=== PATIENT | male | born 1945 | race Caucasian/White ===

== ENCOUNTER → 2017-01-07 | Outpatient (CLI) | payer OTHER ==
[2016-04-30 13:41] VITALS: BP 117/71; PULSE 72
[~2017-01-07] MED LIST: CHOL20007 PO; DICL1GEL28 TOP; IBUP1CAP9 PO; LISI-786 PO; METF500T PO; SILD100T PO; SIMV40TA2 PO
[2017-01-07 12:58] VITALS: BP 129/72; PULSE 92; TEMP 36.9; O2SAT 97
--- NOTE | 2017-01-07 13:45 | Radiation Oncology Follow-Up ---
Radiation Oncology Follow-Up Date of Visit January 07, 2017. Reason For Visit 6 month follow-up Radiation Completion Date Brachytherapy as monotherapy for prostate cancer 10/01/15;[place] Diagnosis (1) Prostate cancer Status: Resolved Onset Date: 11/20/2014 Location: both lobes of the prostate Histology Subtype: adenocarcinoma Stage: ll Permanent Comment: Rising PSA, pretreatment PSA 8.69 Status post ultrasound guided biopsy 11/20/2014 Biopsy stage T2c N0M0 Rolando grade 3+ rate and 3+4 Prostate volume 48.6 Prostate density 0.178 Status post prostate seed implant as monotherapy 10/01/2015 dose 115 Gy 70 seeds were placed Last Edited By: Cristiana Ruvalcaba on Oct 14, 2015 09:37 History of Present Illness Mr. Degroot is a 71-year-old male without a family history of prostate cancer. He presented with a rising prostate-specific antigen to 4.32 in 2007. Because of this rise he underwent ultrasound-guided biopsies on 12/22/2007. Estimated prostate volume was 41 g. A total of 12 biopsies were taken. All 12 biopsies were benign with no evidence of malignancy. Case: [id number]. More recently the patient again had an elevation in his prostate-specific antigen to 8.69 in early 2014. He again was seen by Dr. Tobin. His prostate was estimated at 50 g with some vague firmness on the right compared to the left but no nodularity. Because of the rise in prostate-specific antigen a recommendation was made for repeat ultrasound-guided biopsies. The patient agreed to this procedure was performed on 11/20/2014. A total of 14 biopsies were taken. Estimated prostate volume was 48.6 g. The biopsies from the right and left base and right and left mid gland were benign. Biopsies from the right and left anterior gland were benign. The biopsy from the left apex was positive for an adenocarcinoma of [place] grade of 3+4. The Rolando pattern 4 comprises 10% of the tumor and the tumor involved 35% of the core tissue sample. No lymphovascular or perineural invasion was identified. The biopsy from the right apex was positive for an adenocarcinoma Rolando grade 3+3 involving 50% of the core sample with no lymphovascular or perineural invasion identified. Therefore a total of 2 out of 14 biopsies were positive. Case: [id number]. The patient return to discuss these findings with Dr. Tobin on 11/27/2014. He discussed briefly the treatment options. He arranged for the patient to be seen by Dr. Peralta to discuss the role of radical robotic prostatectomy and he arranged for us to see the patient in referral to discuss the role of radiation. He made the decision to undergo prostate seed implant. He return to our office 12/12/2014 and had an arch study. This showed that the arch was tight and was not currently candidate for implant. He was given a 30 mg Lupron injection on 01/15/2015. He returned today for repeat arch study. He stated the Lupron injection did not improve his urinary status. His AUA score at his last visit was 8. Today his AUA score is 9. He completed expanded prostate cancer index composite for clinical practice and gave a score of 1 of 12 in urinary incontinence symptoms. He gave a score of 3 of 12 in urinary irritation symptoms. He gave a score of 3 of 12 in bowel symptoms. He gave a score of 9 of 12 in sexual symptoms. He gave a score of 3 of 12 and vitality hormonal symptoms. His total was 19 of 60. He describes a slight amount of dysuria with urination. This is mostly at the very end of the penis. It is infrequent. Pain is minimal. He also had more frequent loose bowel movements right after the Lupron injection. This is now resolved. He was also eating a lot of fresh fruit at that time. He is a diabetic he currently is not monitoring his blood sugars at home. His glucometer is broken. He did have a hemoglobin A1c obtained by On 02/12/2015 which was 7.5. With the Lupron therapy he did have a steady decrease in the size of the prostate and we were able to go forward with the implant. Initially the prostate was 48 mL. On 11/20/2014. He had a CT 12/12/2014 and the size was [address] on 03/26/2015 the size was 29 mL. The final arch study 05/27/2015 showed a volume of 25 mL. He was able to be treated with prostate seed implant as monotherapy. This was performed on 10/01/2015. He received 115 Gy. Interim History He is been doing well over the past 6 months from urinary standpoint. He completed AUA score sheet and gave a score of 2. He previously had been on Uroxatral. He is not required the use of this medication in over 6 months. He completed expanded prostate cancer index composite for clinical practice and gave a score of 0 of 12 and urinary incontinence symptoms. He gave a score of 0 of 12 urinary irritation symptoms. He gave a score of 2 of 12 bowel symptoms. He gave a score 8 of 12 and sexual symptoms. He gave a score of one of 12 and hormonal vitality symptoms. His total was 11 of 60. He has seen Dr. Virgen in follow-up. He had a PSA 10/11/2016 at [facility]. This was improved 0.77. The prior evaluation was December 2015 and was 1.730. He has had issues with erectile dysfunction. At his last visit Dr. Virgen increase the Viagra to 100 mg. With the change of dose this did help but he continues to have difficulty with erectile dysfunction. We discussed the use of a pump. He did review this information on the Internet. This did not require a prescription. Allergies Coded Allergies: Rosuvastatin (Verified Allergy, Intermediate, Dizzy , 04/30/16) Home Medications Scheduled Diclofenac Sod (Voltaren 1% Top Gel), 1 APPLN TOP PRN Lisinopril & Hydrochlorothiazi (Zestoretic), 1 TAB PO QAM Metformin Hcl (Glucophage), 1,000 MG PO QAM Simvastatin (Zocor), 40 MG PO QPM Scheduled PRN Ibuprofen (Ibuprofen), 200 MG PO Q6H PRN for Pain Sildenafil Citrate (Viagra), 1 TAB PO DAILY PRN for UNDECIDED Review of Systems Gastrointestinal: Symptoms: WNL GI Comments: No fiber supplements;Rectal spotting - relates to hemorrhoids Oral: Symptoms: No Problems Respiratory: Symptoms: WNL Urinary: Symptoms: WNL Comments: Nocturia x 1-2, See AUA & EPIC Skin: Symptoms: No Problems Physical Exam Vital Signs Date Time Temp Pulse Resp B/P Pulse Ox O2 Delivery O2 Flow Rate FiO2 01/07/17 12:58 36.9 92 24 129/72 97 Pain: Side: Bilateral Patient Pain Scale: 0 - 10 Initial Pain Intensity: 0.0 General Appearance: no apparent distress Eyes: normal inspection, EOMI ENT: normal ENT inspection, hearing grossly normal Respiratory/Chest: lungs clear, no respiratory distress, no accessory muscle use Cardiovascular: regular rate, rhythm, no gallop, + systolic murmur (1/6 systolic murmur) Abdomen: non tender, soft Anal / Rectum: Normal sphincter tone. Prostate is consistent with a seed implant. No rectal masses no rectal bleeding. Extremities: no pedal edema Neurologic/Psychiatric: no motor/sensory deficits, alert, normal mood/affect Skin: warm/dry Additional Studies PSA as reviewed above. Assessment & Plan Plan: He'll be due for his next PSA in March. An order was given. He'll be notified as the results. Continue follow-up with Dr. Virgen. He'll be seeing him in September. He has any continued to consider the pump for erectile dysfunction. We asked him to return to our office in 1 year. Hematology is any questions or concerns in the interim. Total Time In Follow-Up I spent 20 minutes speaking to the patient and performing examination. I spent 15 minutes reviewing information and completing this note. Copy To Isaiah Luna D.O.; Sergo Virgen MD
== END | disposition home or self-care (01) ==
LOC: C.ONC 12:39
PROVIDERS: ATTEND Physician Assistant Medical
DX: Z08 Encounter for follow-up examination after completed treatment for malignant neoplasm (principal); Z92.3 Personal history of irradiation; Z85.46 Personal history of malignant neoplasm of prostate

== ENCOUNTER 2024-04-06 08:41 | Observation (INO) ==
--- NOTE | 2024-01-04 13:55 | PAT Medication Instructions ---
Medication Instructions Date of Service January 04, 2024 Home Medications Medication Instructions Recorded pantoprazole 40 mg tablet,delayed 40 mg PO PM #90 tabs 09/21/23 release lisinopril 40 mg tablet 40 mg PO QAM diltiazem HCl 60 mg capsule,extended release 12 hr 60 mg PO QAM aspirin 81 mg tablet,delayed release (Adult Aspirin Regimen) 81 mg PO PM mecobalamin (vitamin B12) 1,000 mcg chewable tablet 1,000 mcg PO QAM rosuvastatin 10 mg tablet 10 mg PO QPM pantoprazole 40 mg tablet,delayed release 40 mg PO PM dulaglutide 1.5 mg/0.5 mL subcutaneous pen injector (Trulicity) 4.5 mg subcut WK empagliflozin 10 mg tablet (Jardiance) 10 mg PO QAM aluminum hydrox-magnesium carb 160 mg-105 mg chewable tablet 2 tab PO BID PRN docusate sodium 100 mg capsule (Colace) 100 mg PO DAILY STOP 7 days before surgery dulaglutide 1.5 mg/0.5 mL subcutaneous pen injector (Trulicity) 4.5 mg subcut WK STOP 3 days before surgery empagliflozin 10 mg tablet (Jardiance) 10 mg PO QAM ASK your prescriber and surgeon aspirin 81 mg tablet,delayed release (Adult Aspirin Regimen) 81 mg PO PM DO NOT take the morning of surgery lisinopril 40 mg tablet 40 mg PO QAM mecobalamin (vitamin B12) 1,000 mcg chewable tablet 1,000 mcg PO QAM aluminum hydrox-magnesium carb 160 mg-105 mg chewable tablet 2 tab PO BID PRN docusate sodium 100 mg capsule (Colace) 100 mg PO DAILY Take morning of surgery With a small sip of water, OTHERWISE NOTHING TO EAT OR DRINK AFTER MIDNIGHT: diltiazem HCl 60 mg capsule,extended release 12 hr 60 mg PO QAM Take evening before surgery rosuvastatin 10 mg tablet 10 mg PO QPM pantoprazole 40 mg tablet,delayed release 40 mg PO PM aluminum hydrox-magnesium carb 160 mg-105 mg chewable tablet 2 tab PO BID PRN Other Notes If you have any questions please call us at [phone] or [phone] or [phone] or [phone]
--- NOTE | 2024-01-13 09:30 | Anesthesiology Consultation ---
Date of Service January 13, 2024 Assessment & Plan (1) Encounter for pre-operative examination: - check BSG am DOS. - [place] [facility] pre-operative evaluation 01/13/24 [place]: "...Mild Non-obstructive CAD, Aortic Sclerosis, [id number] Mitral Regurgitation, Hypertension, Hypercholesterolemia, Type 2 Diabetes Mellitus, Abnormal EKG (showing NSR with sinus arrhythmia, anterior T wave inversions, and non-specific T wave abnormality in the inferior leads), Prostate Cancer, Stage 3 CKD, and Secondary Hyperparathyroidism who presents today for Preoperative Cardiologic Evaluation. Patient is scheduled undergo a reverse right TSA with Dr. Dennis Damon on 02/10/2024. Patient offers no complaints today. He is able to perform his usual activities of daily living, walk 30 minutes, rides stationary bike for 30 minutes, climb > 2 flights of stairs, do yard work, graham, carry groceries, etc without limiting cardiopulmonary symptoms or difficulties. He recently cut up 5 tandem trucks with a torch in order to haul them off to the dump, this required him to load them into the back of another vehicle. He did not have any symptoms with this either. Patient has not experienced any angina pectoris or anginal equivalent symptoms, overt signs or symptoms of heart failure, nor has he had an y symptoms suggestive dysrhythmia. He has not had any neurologic symptoms suggestive of stroke or mini stroke. He does not experience claudication with his day-to-day activities. Patient is compliant with his medications and has not had any adverse side effects. Based on his functional status without limiting cardiopulmonary symptoms, normal LV systolic function, and only mild n onobstructive CAD on prior catheterization -- patient is an acceptable surgical risk to proceed with surgery as scheduled provided he take his usual dose of Diltiazem 60 mg on the morning of surgery with sips of water. There has no need for further ischemic workup at this time..." Workload note sent to cardiology given notation EKG was not available at time of cardiology visit, response: "Yes, he may proceed with surgery." - dulaglutide instructions: Patient informed at PAT visit to stop 7 days prior to surgery-voiced understanding. - Outpatient joint assessment: Patient is currently scheduled for inpatient pathway. If re-evaluated and patient/surgeon requests outpatient pathway, patient is not ideal candidate for outpatient joint program from anesthesia standpoint. Chart Review Chart Review: Acceptable Risk for Surgery and Patient seen in Pre Admission Testing Teaching & Discussion Pre-Anesthesia Teaching/Discussion Notes: Instructed NPO after midnight before surgery, except medications with 15 cc of water. Medication instructions provided according to the PAT guidelines. History Surgery Operation Date: 02/10/24 07:15 Proposed Procedures p Right Reverse Total Shoulder Arthroplasty - Dennis Damon MD Height/Weight Height: 5 ft 7.5 in Weight: 76.1 kg Allergies Allergy/AdvReac Type Severity Reaction Status Date / Time tamsulosin [From Flomax] Allergy Unknown Dizziness Verified 01/13/24 13:05 Medications Home Medications Medication Instructions Recorded Confirmed Last Taken lisinopril 40 mg tablet 40 mg PO QAM 04/24/19 01/13/24 01/17/23 diltiazem HCl 60 mg 60 mg PO QAM 08/26/19 01/13/24 01/18/23 capsule,extended release 12 hr aspirin 81 mg tablet,delayed 81 mg PO PM 07/06/22 01/13/24 01/17/23 release (Adult Aspirin Regimen) mecobalamin (vitamin B12) 1,000 1,000 mcg PO QAM 09/28/22 01/13/24 01/17/23 mcg chewable tablet rosuvastatin 10 mg tablet 10 mg PO QPM 03/31/23 01/13/24 Unknown pantoprazole 40 mg tablet,delayed 40 mg PO PM #90 tabs 09/21/23 01/13/24 Unknown release dulaglutide 1.5 mg/0.5 mL 4.5 mg subcut WK 12/15/23 01/13/24 Unknown subcutaneous pen injector (Trulicity) empagliflozin 10 mg tablet 10 mg PO QAM 12/15/23 01/13/24 Unknown (Jardiance) aluminum hydrox-magnesium carb 160 2 tab PO BID PRN gas 01/04/24 01/13/24 Unknown mg-105 mg chewable tablet docusate sodium 100 mg capsule 100 mg PO DAILY 01/04/24 01/13/24 Unknown (Colace) Past Medical History Medical History (Updated 01/13/24 @ 13:28 by Niko Ortez PA-C) Acid reflux controlled, stable per pt Aortic stenosis Echo (09/2022): Mild aortic stenosis (Dimensionless valve index 0.75) Arthritis Diabetes NIDDM History of COVID-19 (~04/2022) 04/2022 HLD (hyperlipidemia) Per records Hypertension controlled, stable per pt Overweight (BMI 25.0-29.9) Prostate cancer s/p prostate seed implant as monotherapy 2016 dose 115 Gy, 70 seeds Renal mass, left Under surveillance, stable per patient Secondary hyperparathyroidism of renal origin Stage 3b chronic kidney disease Follows with Dr. Payan Patient denies h/o stroke, seizures, heart attack, heart failure, blood clots/DVTs or blood transfusions. Exercise / Class Metabolic Activity II 4-5 Yardwork/Stairs/Walk up hill (denies chest discomfort or shortness of breath with one flight of stairs) Past Family History Family History Father Colorectal cancer Brother Colorectal cancer Other No pertinent family history in first degree relatives Past Surgical History Surgical History H/O colonoscopy History of cardiac cath 10+ years ago (r/t abnormal EKG per patient)- no stents History of cataract surgery R/L History of myringotomy History of tonsillectomy History of tooth extraction S/P left inguinal hernia repair (2021) Open Left Inguinal Hernia Repair with Mesh; excision of cord lipoma Past Anesthesia History No Hx of Anesthesia Complications and No Family Hx of Anesthesia Complications History of PONV No Hx of PONV and No Hx of Motion Sickness Social History Smoking Status: Never smoker Do You Dip or Chew Tobacco: No Hx Alcohol Use: Yes Alcohol type: beer alcohol intake frequency: a few times a week Hx Substance Use: No substance use type: does not use Review of Systems Snoring, denies witnessed apneas. Patient denies chest pain, shortness of breath, dyspnea on exertion, fever, chills, cough, wheezing, or palpitations. Physical Exam Vital Signs Vitals BP 126/80 P 74 TEMP 98.1 SP02 97% on RA RESP 18 Physical Patient resting comfortably in chair in no acute distress, alert and oriented, responding appropriately throughout visit Full cervical extension range of motion without pain TMD 3.5 finger breadths Mallampati Score 3 Dentition: intact, denies chipped or loose teeth, caps/crowns, implants or bridges Lungs: normal respiratory effort. Good air movement, clear throughout to auscultation, no adventitious breath sounds Cardiac: regular rate and rhythm, no murmurs noted Carotid arteries: negative bruit bilat Lab Results Anesthesia Preop Results Results Anesthesia Widget: WBC 5.98 K/ul (4.8-10.8) 01/13/24 Hgb 14.2 g/dl (14.0-18.0) 01/13/24 Hct 43.9 % (42.0-52.0) 01/13/24 Plt 178 K/uL (130-400) 01/13/24 Na 138 mmol/L (136-145) 01/13/24 K 4.8 mmol/L (3.5-5.1) 01/13/24 Cl 106 mmol/L (98-107) 01/13/24 CO2 27 mmol/L (21-32) 01/13/24 BUN 37 mg/dl (6-23) H 01/13/24 Creat 1.97 mg/dl (0.6-1.4) H 01/13/24 Glucose Level 114 mg/dl (70-99(Fasting)) H 01/13/24 PT 10.8 Seconds (9.0-12.0) 01/13/24 PTT 26 Seconds (21-31) 01/13/24 INR 1.0 (0.9-1.1) 01/13/24 HA1c 7.4 % (4.5-5.6) H 01/13/24 Blood Type O Positive 01/13/24 Antibody Screen NEGATIVE 01/13/24 Testing Electrocardiogram Date: 01/13/24 NSR, rate 66 bpm Nonspecific and T wave abnormality Reviewed confirmed report, no cardiopulmonary complaints in PAT at time of visit: message forwarded to patient's piece cutter. Chest X-Ray Date: 01/13/24 No acute process. Echocardiogram Date: 10/23/22 EF 65-70% No LV regional wall motion abnormalities Mild to moderate mitral regurgitation Moderate cLVH Mild LA dilatation Aortic valve sclerosis with mild stenosis (ANGEL 1.9 cm2, mean PG 10 mmHg) Mild to moderate mitral regurgitation Grade I diastolic dysfunction
[~2024-04-06 08:41] MED LIST changes: +BUPIVACAINE 0.5 % 5 MG/1 ML PF 10ML VIAL ONE; -CHOL20007 PO; -DICL1GEL28 TOP; -IBUP1CAP9 PO; -LISI-786 PO; -METF500T PO; -SILD100T PO; -SIMV40TA2 PO
[2024-04-06 09:48] LABS: Basophils # (auto) 0.03 K/uL (0.00-0.20); Basophils % (auto) 0.5 %; Eosinophils # (auto) 0.24 K/uL (0.00-0.50); Eosinophils % (auto) 4.4 %; Hematocrit (blood only) 44.5 % (42.0-52.0); Hemoglobin 13.8 g/dl (14.0-18.0); Immature Granulocytes # (auto) 0.02 K/uL (0.01-0.20); Immature Granulocytes % (auto) 0.4 %; Lymphocytes # (auto) 1.46 K/uL (1.20-3.40); Lymphocytes % (auto) 26.6 %; Mean Corpuscular Hemoglobin 27.7 pg (25.0-34.0); Mean Corpuscular Volume 89.4 fL (80.0-100.0); Mean Platelet Volume 10.2 fL (9.4-12.4); Monocytes # (auto) 0.61 K/uL (0.11-0.59); Monocytes % (auto) 11.1 %; Neutrophils # (auto) 3.12 K/uL (1.40-6.50); Platelet Count 174 K/uL (130-400); RDW Coefficient of Variation 13.9 % (11.5-14.5); RDW Standard Deviation 44.5 fL (36.4-46.3); Red Blood Count 4.98 M/uL (4.70-6.10); White Blood Count 5.48 K/ul (4.8-10.8)
[2024-04-06] MEDS: LR 60ML/HR IV SCH (09:52)
[2024-04-06] MEDS: LR 15ML/HR IV SCH (09:54)
[2024-04-06] MEDS: ACETAMINOPHEN 500 MG TAB PO SCH (09:55)
[2024-04-06 10:02] LABS: BUN Creatinine Ratio 23.8 (10-20); Calcium 9.3 mg/dl (8.6-10.3); Creatinine Clr Calc Pharmacy 31.3 ml/min; Est GFR (African American) 39.8 ml/min; Est GFR (Non-African American) 34.4 ml/min; Potassium 4.8 mmol/L (3.5-5.1)
[2024-04-06] MEDS ORDERED: fentaNYL citrate PF 100 MCG/2 ML VIAL ONE (10:08)
[2024-04-06] MEDS ORDERED: MIDAZOLAM HCL 1 MG/ML 2ML VIAL ONE ×2 (10:08)
[2024-04-06] MEDS ORDERED: ROCURONIUM BROMIDE 10 MG/ML 5 ML VIAL IV ONE (10:10)
[2024-04-06] MEDS ORDERED: PROPOFOL IV EMULSION 10 MG/ML 20 ML VIAL IV ONE (10:10)
[2024-04-06] MEDS ORDERED: LIDOCAINE 2% 2 ML VIAL/AMP(20MG/ML) INFIL ONE (10:10)
[2024-04-06 10:16] LABS: INR 0.9 (0.9-1.1); Partial Thromboplastin Time 26 Seconds (21-31); Prothrombin Time 10.1 Seconds (9.0-12.0)
--- NOTE | 2024-04-06 10:30 | History & Physical Report ---
Date of Service April 06, 2024 Assessment & Plan (1) Rotator cuff arthropathy of right shoulder: The surgical plan and the informed consent were reviewed and confirmed for surgery today. Will proceed as planned with right shoulder reverse arthroplasty and concomitant biceps tenodesis. History of Present Illness Chief Complaint: Right shoulder pain and rotator cuff dysfunction Primary Care Provider: Isaiah Coronel DO 78-year-old male presents today to proceed with the surgery we discussed on January 26. His shoulders continue to be symptomatic with regards to pain and loss overhead motion. No changes to his health history. He has been cleared by his other medical doctors for surgery today. Allergies Allergy/AdvReac Type Severity Reaction Status Date / Time tamsulosin [From Flomax] Allergy Mild Dizziness Verified 04/06/24 09:17 Home Medications Medication Instructions Recorded Confirmed Type lisinopril 40 mg tablet 40 mg PO QAM 04/24/19 04/06/24 History diltiazem HCl 60 mg 60 mg PO QAM 08/26/19 04/06/24 History capsule,extended release 12 hr aspirin 81 mg tablet,delayed 81 mg PO QAM 07/06/22 04/06/24 History release (Adult Aspirin Regimen) rosuvastatin 10 mg tablet 10 mg PO QPM 03/31/23 04/06/24 History dulaglutide 1.5 mg/0.5 mL 4.5 mg subcut WK 12/15/23 04/06/24 History subcutaneous pen injector (Trulicity) empagliflozin 10 mg tablet 12.5 mg PO QAM 12/15/23 04/06/24 History (Jardiance) aluminum hydrox-magnesium carb 160 2 tab PO ACHS gas 01/04/24 04/06/24 History mg-105 mg chewable tablet docusate sodium 100 mg capsule 200 mg PO QAM 01/04/24 04/06/24 History (Colace) pantoprazole 40 mg tablet,delayed 40 mg PO PM #90 tabs 01/14/24 04/06/24 Rx release multivitamin with minerals-folic 2 tab PO QAM 03/28/24 04/06/24 History acid 200 mcg chewable tablet (Men's Multivitamin Gummies) Past Med/Surg History Problem List Renal lesion Rotator cuff arthropathy of right shoulder Mitral regurgitation Family history of colon cancer Mild CAD mild, non-obstructive per [place] [facility] records Hypertension controlled, stable per pt Aortic stenosis Impotence, organic Diabetes NIDDM Asymptomatic hyperuricemia Vitamin D deficiency Stage 3b chronic kidney disease Follows with Dr. Payan Prostate cancer s/p prostate seed implant as monotherapy 2016 dose 115 Gy, 70 seeds Medical History Rotator cuff arthropathy of right shoulder Mild CAD Hx of renal calculi passed on own Mitral regurgitation Diabetes History of prostate cancer (2015) brachytherapy Stage 3b chronic kidney disease (CKD) Hypertension Overweight (BMI 25.0-29.9) HLD (hyperlipidemia) Per records History of COVID-19 (~12/2023) x3 (January 2024 surgery cancelled due to COVID + , symptoms all resolved) Aortic stenosis Echo (09/2022): Mild aortic stenosis (Dimensionless valve index 0.75) Arthritis Acid reflux controlled, stable per pt Secondary hyperparathyroidism of renal origin Renal mass, left Under surveillance, stable per patient Surgical History Hx of brachytherapy (2015) prostate ca Hx of colonoscopy with polypectomy S/P left inguinal hernia repair (2021) Open Left Inguinal Hernia Repair with Mesh; excision of cord lipoma History of myringotomy as a child History of cataract surgery (2013) R/L History of tooth extraction History of tonsillectomy as a child History of cardiac cath (2011) (r/t abnormal EKG per patient)- no stents - [facility] - seeing Dr. Abarca 03/30/24 Family History Father Colorectal cancer Brother Colorectal cancer Family/Other Myocardial infarction Denies family history of Ovarian cancer Prostate cancer Breast cancer Social History Smoking Status: Never smoker Second Hand Exposure: No; Do You Dip or Chew Tobacco: No; Tobacco Cessation Education Requested by Patient: No Hx Alcohol Use: Yes Alcohol type: beer Alcohol Intake Frequency: Monthly or Less Hx Substance Use: No Preferred Language: Nepali Communication Ability: Effective Visual Impairment: No Limitations Hearing Ability: Normal Cone Tender Required: No Beliefs That Will Affect Care: None marital status: Current Living Situation: Spouse current occupational status: retired How many Children do You have: 2 Other Information That Helps Us Care for You: No Feels Safe at Home: Yes Safety Concerns: Feels Safe At This Time Diet: regular during the past year weight has: remained stable Dental Care, Regularly: No Physical Activity Frequency: 3-4 Times per Week Seatbelt Use: always Sunscreen Use: No Do you think of yourself as: straight/heterosexual Gender Identity: Male Assistive Devices: Glasses and Hearing Aid - Bilateral Review of Systems All systems reviewed & are unremarkable except as noted in HPI & below. Physical Exam Right shoulder: No overlying skin lesions. Active forward elevation limited to about 70 degrees. Full passive forward elevation in the preop holding area. Neurovascular intact. Constitutional well developed and well nourished; no acute distress and not intoxicated appearing Respiratory normal respiratory effort; no respiratory distress Cardiovascular Extremities: normal capillary refill; no edema Skin no rashes, warm and dry Psychiatric A+Ox3, euthymic affect Results & Data Results & Data Laboratory Results H & H 04/06/24 Range/Units 09:19 Hgb 13.8 L (14.0-18.0) g/dl Hct 44.5 (42.0-52.0) % Coagulation 04/06/24 Range/Units 09:19 INR 0.9 (0.9-1.1) Laboratory Tests 04/06/24 09:19 Creatinine 1.85 H Glucose 190 H Diagnostic Findings . PG Care Time/CCT Total # of Minutes Spent Total Time Spent with Patient: Total time spent is greater than 50% in coordination of care (as documented) at patient's floor/unit and/or counseling patient: Coding Level of Care Code None Diagnoses Rotator cuff arthropathy of right shoulder M12.811
[2024-04-06] MEDS: TRANEXAMIC ACID 1,000 MG **IV Pre-op IV SCH (10:32)
[2024-04-06] MEDS ORDERED: ONDANSETRON INJ 2 MG/ML 2 ML VIAL IV PRN ×2 (10:36→13:59)
[2024-04-06] MEDS ORDERED: ATROPINE SULFATE 0.1 MG/ML 10ML SYR IV PRN (10:36)
[2024-04-06] MEDS ORDERED: ePHEDrine sulfate 50 MG/ML AMP IV PRN (10:36)
[2024-04-06] MEDS ORDERED: fentaNYL citrate PF 100 MCG/2 ML VIAL IV PRN (10:36)
[2024-04-06] MEDS: ceFAZolin 2000MG 2,000 MG/15 ML SYR IV SCH ×2 (10:53→19:54)
[2024-04-06] MEDS ORDERED: DEXAMETHASONE SOD INJ 4 MG/ML VIAL ONE (11:39)
[2024-04-06] MEDS ORDERED: ePHEDrine sulfate 50 MG/ML AMP ONE (11:39)
[2024-04-06] MEDS ORDERED: ONDANSETRON INJ 2 MG/ML 2 ML VIAL ONE (11:40)
[2024-04-06] MEDS ORDERED: GLYCOPYRROLATE 0.2 MG/ML VIAL ONE (11:40)
[2024-04-06] MEDS ORDERED: PHENYLEPHRINE HCL 10 MG/ML VIAL ONE (11:40)
[2024-04-06] MEDS: TRANEXAMIC ACID 1,000 MG **IV Intra-op IV SCH (12:56)
[2024-04-06] MEDS: VANCOMYCIN HCL 1000MG/20ML VIAL ONE (13:12)
[2024-04-06] MEDS ORDERED: HYDROmorphone INJ 0.5 MG/0.5 ML SYR IV PRN (13:59)
[2024-04-06] MEDS ORDERED: ACETAMINOPHEN 1,000 MG/100 ML VIAL IV PRN (13:59)
[2024-04-06] MEDS ORDERED: oxyCODONE HCL IR 5 MG TAB (IMMEDIATE RELEASE) PO PRN (13:59)
[2024-04-06] MEDS ORDERED: NALOXONE HCL 0.4 MG/1 ML VIAL/CARP IV PRN (13:59)
[2024-04-06] MEDS ORDERED: PHARMACY GLYCEMIC MGMT CONSULT PRN (13:59)
[2024-04-06] MEDS ORDERED: bisacodyL 10 MG SUPP PR PRN (13:59)
[2024-04-06] MEDS ORDERED: diphenhydrAMINE Capsule 25 MG CAP PO PRN (13:59)
[2024-04-06] MEDS ORDERED: METOCLOPRAMIDE HCL INJ 5 MG/ML 2 ML VIAL IV PRN (13:59)
[2024-04-06] MEDS ORDERED: MAGNESIUM HYDROXIDE SUSP 30 ML UDC PO PRN (13:59)
[2024-04-06] MEDS ORDERED: NO NSAIDS SCH (14:00)
--- NOTE | 2024-04-06 14:01 | Operative Report ---
PG Post Operative Report Pre & Post Diagnosis Operation Date: 04/06/24 10:35 Pre-Op Diagnosis: Rotator Cuff Arthropathy of Right Shoulder Post-Op Diagnosis: Rotator Cuff Arthropathy of Right Shoulder, Proximal Biceps Rupture I identified the patient and participated in the time-out.: Yes Procedure Operation Date: 04/06/24 10:35 Actual Procedures p Right Reverse Total Shoulder Arthroplasty(Right) - Dennis Damon MD Surgeon Dennis Damon MD Net Front End Developer Thuy Floyd PA-C Estimated Blood Loss 100 Findings See Below Alessio [employer] comprehensive reverse shoulder arthroplasty was performed: Stem14 mm micro, baseplatemedium augmented superolateral, nhxbiuuttow90 mm +3 lateralized, humeral tray40 mm standard +0 offset, poly36 mm standard, central screw 6.5 mm x 30 mm, all locking peripheral screws 4.75 x 15 mm, 4.75 x 25 mm, 4.75 x 30 mm, and 4.75 x 20 mm EXAMINATION UNDER ANESTHESIA: Preoperative exam under anesthesia revealed the followin degrees of forward flexion, 90 degrees external rotation at the side, 1 to degrees of abduction, 60 degrees of external rotation and 20 degrees of internal rotation with the arm abducted. Postoperatively, range of motion parameters after implantation of prosthesis revealed a stable prosthesis with range of motion parameters as follows: 120 of forward flexion, 70 of external rotation at the side, 100 of abduction, 90 of external rotation with the arm abducted, 20 of internal rotation with the arm abducted. The patient's safe range of motion included the ability to get to the back of her head. Internal rotation to the belly without significant tension. The proximal biceps had ruptured and was not discoverable. Specimens Humeral head for pathology Drains none Anesthesia Type General Regional Complications none Disposition Accompanied Patient To Recovery: No Disposition: Recovery Room Indications 78-year-old male with chronic progressive right shoulder discomfort and loss of function. 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 He was counseled on the diagnosis, prognosis and treatment options. I did recommend reverse shoulder arthroplasty as a rotator cuff repair was likely not possible or reliable. After reviewing the risks, benefits, and alternatives to this intervention, he was interested in proceeding. Informed consent was obtained in clinic, and confirmed today. Description of Procedure The patient was identified in the preoperative holding area. The operative extremity was marked. Regional block was administered by Anesthesia. The patient was then brought to the operating room and placed supine. Preliminary time-out procedure was performed. All were in agreement. General endotracheal anesthesia was induced without any issues. The patient was sat up in around 40-45 degrees of inclination in the beachchair position. Exam under anesthesia was performed confirming the above findings. Preoperative antibiotics were administered. TXA was administered. Sequential compressive devices were placed on her bilateral lower extremities for DVT prophylaxis. Bony prominences were inspected, well-padded and free of any evidence for peripheral nerve compression. The operative upper extremity was then prepped and draped in a normal standard fashion, with use of the padded Kulkarni stand. Prior to incision, a second time- out procedure was performed confirming the patient, site, laterality and the procedure. All were in agreement. 1. Right shoulder open reverse total shoulder replacement with augmented glenoid baseplate with patient specific guide: A deltopectoral incision was utilized. Incision was carried out sharply and with electrocautery through the skin and subcutaneous tissues. The deltopectoral interval was developed. The cephalic vein was taken laterally. Subdeltoid space was developed bluntly. A deltoid brown retractor was placed to retract the deltoid laterally and superiorly. 1 cm of the superior border of the pectoralis major tendon insertion site was released in standard fashion to improve exposure. Clavipectoral fascia was removed with electrocautery. Extensive subacromial bursitis was encountered and this was completely removed with a Bovie. The lateral aspect of the conjoined tendon was then followed to its insertion site on the coracoid. The conjoined tendon was retracted medially. There was no evidence of the biceps tendon in the groove. It was not palpable more distally along the anterior humerus. Certainly was not able to be found underneath the pectoralis tendon. For that reason no tenodesis was chosen.. A sharp Hohmann retractor was then placed into the interval and into the joint. Subscapularis tendon was still present and attached on the lesser tuberosity. The articular surface of the humeral head could be appreciated. The subscapularis tendon was then tagged with #5 Ti-Cron sutures to gain control. The capsule with the subscapularis tendon was then released up the inferior humeral neck as one layer. The humeral head dislocated with successive extension and external rotation. 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 The supraspinatus was absent. The greater tuberosity footprint was bare. The top of the humeral head was identified. A starting awl was used sound the humeral canal. The bone quality was moderate. We opted to set the retroversion of the humeral cut at around 30 degrees of retroversion to match picayune retroversion. The humeral head resection was then made in parallel fashion using the cutting guide. Sequential reaming was carried out up to a size 15 as the maximal stem size. Successive trial broaches were then broached up to a this reamer size, which gave us excellent press-fit. The trial stem was left in place. The metal manhole cover Was then placed to protect this cut surface during retraction for the glenoid. We then proceeded over to glenoid. An anterior glenoid neck retractor was placed. The MGHL and SGHL were released off of the muscular portion of the subscapularis being mindful of palpating and identifying the axillary nerve to make sure it was free of injury during releases. Next, the interval between the IGHL and the muscular portions of the subscapularis was identified. My finger was on the axillary nerve to protect it during releases. The IGHL was then released up to around the 7 o'clock position. A blunt retractor was then placed to retract the humerus posteriorly. A sharp Hohmann retractor was placed at the 12 o'clock position. The glenoid deformity was evaluated with assistance with the bone model. Extraneous capsulolabral tissue was dissected to reveal the bone anatomy. This confirmed our decision to proceed with preoperative virtual planning. The arm was placed around 30 degrees of flexion, 90 degrees of external rotation and 30 degrees of abduction to distract the humerus posteriorly. Labrum was circumferentially removed including the biceps tendon stump with a Bovie. A patient specific guide was used to place an initial guide pin, followed by the more superior pin. The patient specific guide was then removed. The custom reamer guide was placed on the superior pin and the reamer was brought down the central pin. Reaming was conducted based on the guide. Irrigation was used and we confirmed adequate reaming. The base protector was then fastened with a screw to protect the surface from the augment reamer. The augment reamer sufficiently removed the cartilage surface according to the preoperative plan. Copious irrigation was performed to irrigate out the joint. The planned glenoid baseplate and central threaded screw was then placed with excellent capture. Four peripheral locking screws were placed. The final construct appeared to be extremely strong as the entire glenoid and scapula moved together as one unit confirming excellent fixation of the baseplate. A +3 lateralized glenosphere per the preoperative plan was trialed. The humerus was brought back into view. A standard trial tray and poly were placed on the trial stem. The humerus was then reduced onto the glenoid with the arm in abduction and external rotation. The arm was taken out of the bhatia, taken through a physiologic range of motion. No evidence for impingement. No evidence for kick off. No shuck. Thus, the trials would be a most appropriate for stability. Next, the trial humeral component was removed. Next, the planned glenosphere was confirmed, opened, and set for offset on the back table. The glenosphere was then seated into the baseplate and impacted onto the rose taper. A jackman was used to test fixation, before resetting with additional malleting. The joint was then copiously irrigated. Humerus was then brought back into view with external rotation, deltoid brown retractor and multiple blunt Homans. The final stem prosthesis was then brought onto the field. Final tray insert as well as the poly components were opened. Humeral canal was copiously irrigated. The final humeral component was then brought back on to the field and seated firmly into the humerus. Excellent press-fit was achieved. The final tray and poly were then impacted onto the Rose taper. Thus, this completed the humeral component implantation. With the final components in place, humeral component was then reduced onto the glenosphere and final postoperative range of motion assessment was performed. Stability confirmed. This completed the open reverse total shoulder replacement. The wound was copiously irrigated. A Betadine solution soak was performed. The wound was infused with a large volume of iodine solution. It was left to sit for 3 minutes. Final irrigation was then conducted using pulse lavage. The deltopectoral incision was closed with continuous #1 Vicryl suture. Subcutaneous tissues were closed with 0 and 2-0 Vicryl suture in buried interrupted fashion. The skin was closed with river. The wound was dressed with xeroform, gauze, and ABD, contained by Gloria. The patient was placed in a standard sling and turned over to the anesthesia team. The patient tolerated procedure well, was extubated in the operating room without complication, and transferred to the PACU in stable condition. DISPOSITION: The patient will remain in sling for a total of 4 weeks. Hand, w rist, and elbow range of motion exercises may be initiated. Formal therapy will be initiated starting with gentle active assisted range of motion. No strengthening will be permitted before 12 weeks. Physician special ed assistant attestation: Thuy Floyd PA-C was present and scrubbed for the duration of the case. Skilled assistance was essential to prepping/draping, patient positioning, retraction, and wound closure. I attest to the content of the Intraoperative Record and any orders documented therein. Any exceptions are noted below.
--- NOTE | 2024-04-06 14:47 | Pharmacy Report ---
Pharmacy Glycemic Short Note 2 - Date of Service April 06, 2024 - Glycemic Short BSG Results (Last 24 hours): 04/06/24 04/06/24 09:19 13:56 Glucose 190 H POC Glucose 179 H 212 H OUTPATIENT ANTIDIABETIC REGIMEN: * Jardiance 10mg QAM * Trulicity 4.5gm QW * HbA1c 7.4% (01/13/24) ASSESSMENT: * Randy is a 78 YOM admitted status post reverse right total shoulder arthroplasty with a history of type 2 diabetes mellitus. Pharmacy has been consulted to assist with glycemic management while inpatient. * Fasting BSG this AM acceptable but slightly above goal range, it appears he received 4mg IV dexamethasone preoperatively. Will give a one time dose of basal insulin at approx 0.3units/kg to cover for steroid induced hyperglycemia. * Novolog initiated at a weight based stress of 2.5 PLAN FOR INPATIENT GLYCEMIC CONTROL: * Hold outpatient oral diabetes medications * Basal insulin * Lantus 20 units SQ QDD x1 * Reassess basal in AM * Bolus insulin * NovoLog per scale ACHS or Q6hrs while NPO * Goal Range: Low 110 mg/dL - High 140 mg/dL * Correction Factor: 25 mg/dL/unit * Nutritional / Prandial insulin per carb ratio of 1 unit per 8 grams CHO consumed
--- NOTE | 2024-04-06 14:49 | Anesthesiology Progress Note ---
Date of Service April 06, 2024 Anesthesia Post Procedure Vital Signs Vital Signs: Temp Pulse Resp BP Pulse Ox O2 Del Method O2 Flow Rate 04/06/24 14:45 36.4 C L 84 20 117/68 96 Room Air 04/06/24 14:35 83 12 112/63 96 Room Air 04/06/24 14:25 83 22 111/61 96 Room Air 04/06/24 14:15 83 16 112/57 L 98 Oxymask 3 04/06/24 14:05 86 14 112/68 99 Oxymask 3 04/06/24 13:55 36.1 C L 85 16 116/62 98 Oxymask 6 04/06/24 09:24 36.6 C 67 18 155/92 H 98 Room Air Transfer of Care Handoff Completed per policy Notes Mental Status: alert / awake / arousable Patient Amnestic to Procedure: Yes Nausea / Vomiting: adequately controlled Pain: adequately controlled Airway Patency, RR, SpO2: stable & adequate BP & HR: stable & adequate Hydration State: stable & adequate Anesthetic Complications: no major complications apparent and Pt Satisfied with anesthetic care
[2024-04-06] MEDS ORDERED: NON-FORMULARY MEDICATION (Dulaglutide [Trulicity] 1.5 mg/0.5 mL pen injector) SQ SCH (15:15)
[2024-04-06] MEDS: SODIUM CHLORIDE 0.9% 1,000 ML IV SCH (16:13)
[2024-04-06] MEDS: ALUMINUM/MAGNESIUM SUSP 30 ML UDC PO SCH (16:58)
[2024-04-06] MEDS: INSULIN ASPART PER UNIT CHARGE SC SCH (17:00)
[2024-04-06] MEDS: LANTUS PER UNIT CHARGE SC SCH (17:03)
--- NOTE | 2024-04-06 17:55 | XRay Report ---
RIGHT SHOULDER 2 VIEWS CLINICAL HISTORY: Postoperative examination. FINDINGS: 2 portable views of the right shoulder are compared to study dated 11/02/2023. The skeletal s tructures are osteopenic. A right shoulder arthroplasty is in near anatomic alignment. No acute fract ure is seen. Skin clips, subcutaneous gas, and soft tissue swelling overlying the right shoulder are expected postsurgical changes. Productive degenerative change is noted at the acromioclavicular joint . Atelectasis is seen at the right lung base. IMPRESSION: Expected postoperative findings status post right shoulder arthroplasty. No acute fractur e is seen. Electronically signed by: Sae Abarca M.D. 04/06/2024 5:54 PM
[2024-04-06] MEDS ORDERED: DOCUSATE SODIUM 100 MG CAP PO SCH (21:00)
[2024-04-06] MEDS: PANTOprazole 40 MG TAB PO SCH (22:00)
[2024-04-06] MEDS: SENNA 8.6 MG TAB PO SCH (22:01)
[2024-04-06] MEDS: ROSUVASTATIN CALCIUM 10 MG TAB PO SCH (22:01)
[2024-04-07 07:01] LABS: Basophils # (auto) 0.01 K/uL (0.00-0.20); Basophils % (auto) 0.1 %; Hematocrit (blood only) 36.5 % (42.0-52.0); Hemoglobin 11.9 g/dl (14.0-18.0); Immature Granulocytes # (auto) 0.05 K/uL (0.01-0.20); Immature Granulocytes % (auto) 0.4 %; Lymphocytes # (auto) 0.66 K/uL (1.20-3.40); Lymphocytes % (auto) 5.9 %; Mean Corpuscular Hemoglobin 28.3 pg (25.0-34.0); Mean Corpuscular Hgb Conc 32.6 g/dL (32.0-36.0); Mean Corpuscular Volume 86.7 fL (80.0-100.0); Mean Platelet Volume 10.7 fL (9.4-12.4); Monocytes # (auto) 1.03 K/uL (0.11-0.59); Monocytes % (auto) 9.1 %; Neutrophils # (auto) 9.52 K/uL (1.40-6.50); Neutrophils % (auto) 84.5 %; Platelet Count 171 K/uL (130-400); RDW Coefficient of Variation 13.7 % (11.5-14.5); RDW Standard Deviation 43.1 fL (36.4-46.3); Red Blood Count 4.21 M/uL (4.70-6.10); White Blood Count 11.27 K/ul (4.8-10.8)
[2024-04-07 07:18] LABS: BUN Creatinine Ratio 18.7 (10-20); Calcium 8.7 mg/dl (8.6-10.3); Creatinine Clr Calc Pharmacy 33.8 ml/min; Est GFR (African American) 43.8 ml/min; Est GFR (Non-African American) 37.8 ml/min; Potassium 4.8 mmol/L (3.5-5.1)
[2024-04-07] MEDS: ASPIRIN 81 MG ECTAB PO SCH (07:31)
[2024-04-07] MEDS: DOCUSATE SODIUM 100 MG CAP PO SCH (07:31)
[2024-04-07] MEDS: lisinopril 40 MG TAB PO SCH (07:31)
[2024-04-07] MEDS: MULTIVITAMIN TAB PO SCH (07:32)
[2024-04-07 08:04] VITALS: BP 132/68; PULSE 78; RESP 17; TEMP 98.2; O2SAT 96
[2024-04-07] MEDS: LANTUS PER UNIT CHARGE SC SCH (08:34)
--- NOTE | 2024-04-07 08:52 | Orthopedic Progress Note ---
Date of Service April 07, 2024 Assessment & Plan (1) Status post reverse arthroplasty of right shoulder: - Should remain nonweightbearing right upper extremity. -He would like to go to physical therapy at [facility] in [place]. He will follow the reverse total shoulder arthroplasty protocol from [facility] orthopedics. -Discharge order has been placed. May be discharged after he works with PT/OT. He is stable from an orthopedic standpoint. -Should continue his home medications as normal when he is discharged. Should refrain from NSAIDs due to his kidney function. Did discuss with him a close watch on his sugars/diabetic control. He is aware. -Home medications have been sent. Instructed him on how to use them. -Instructed him on the use of the sling. -Discussed with him hygiene. Dressing can come off on postop day 3. -I will see him back in about 2 weeks as an outpatient for a postop visit. Subjective Operation Date: 04/06/24 10:35 Actual Procedures p Right Reverse Total Shoulder Arthroplasty(Right) - Dennis Damon MD Patient is postop day 1 from a right reverse total shoulder arthroplasty. He is doing quite well and is inquiring when he is allowed to go home. States that his block is still in effect. He has no other questions or concerns today. Review of Systems All systems reviewed & are unremarkable except as noted in HPI & below. Physical Exam General: Alert and oriented. No acute distress. Right shoulder: Inspection unremarkable for any abnormalities or concerns. Dressing is dry and intact. Did change his sling from the hospital 1 to the 1 that he was given in our office. Distal pulses palpated. Capillary refill less than 3 seconds. Psychiatric A+Ox3, euthymic affect Results & Data Results & Data Laboratory Results . Diagnostic Findings . PG Care Time/CCT Total # of Minutes Spent Total Time Spent with Patient: Total time spent is greater than 50% in coordination of care (as documented) at patient's floor/unit and/or counseling patient: Coding Level of Care Code 42388 Post Operative Follow-Up Diagnoses Status post reverse arthroplasty of right shoulder Z96.611
--- NOTE | 2024-04-07 08:55 | Discharge Summary ---
Date of Service April 07, 2024 Admission HPI (Per Admitting) 78-year-old male presents today to proceed with the surgery we discussed on January 26. His shoulders continue to be symptomatic with regards to pain and loss overhead motion. No changes to his health history. He has been cleared by his other medical doctors for surgery today. He was admitted to the hospital for observation overnight from his right reverse total shoulder arthroplasty. Admission Exam (Per Admitting) Right shoulder: No overlying skin lesions. Active forward elevation limited to about 70 degrees. Full passive forward elevation in the preop holding area. Neurovascular intact. Principal Diagnosis Same as "Discharge Diagnosis" noted below under Discharge Instructions. Discharge Exam General: Alert and oriented. No acute distress. Right shoulder: Inspection unremarkable for any abnormalities or concerns. Dressing is dry and intact. Did change his sling from the hospital 1 to the 1 that he was given in our office. Distal pulses palpated. Capillary refill less than 3 seconds. Discharge Data Procedures Performed Operation Date: 04/06/24 10:35 Actual Procedures p Right Reverse Total Shoulder Arthroplasty(Right) - Dennis Dmaon MD Ordered Studies 04/06/24 05:00 US - OR guided needle placemen Routine Hospital Course (1) Status post reverse arthroplasty of right shoulder: - Should remain nonweightbearing right upper extremity. -He would like to go to physical therapy at [facility] in [place]. He will follow the reverse total shoulder arthroplasty protocol from [facility] orthopedics. -Discharge order has been placed. May be discharged after he works with PT/OT. He is stable from an orthopedic standpoint. -Should continue his home medications as normal when he is discharged. Should refrain from NSAIDs due to his kidney function. Did discuss with him a close watch on his sugars/diabetic control. He is aware. -Home medications have been sent. Instructed him on how to use them. -Instructed him on the use of the sling. -Discussed with him hygiene. Dressing can come off on postop day 3. -I will see him back in about 2 weeks as an outpatient for a postop visit. PG Care Time/CCT Total # of Minutes Spent Total Time Spent with Patient: Total time spent is greater than 50% in coordination of care (as documented) at patient's floor/unit and/or counseling patient: Discharge Plan Discharge Items Patient Disposition: Home - Self-Care Reason For Visit: Rotator Cuff Arthropathy of Right Shoulder Discharge Diagnosis: as above Activity: Per Instructions section Non-emergency contact: Surgeon Call non-emergency contact if: your pain is not controlled, you have a fever and your temperature is above 101.5 Follow-up/Referrals: Isaiah Coronel, [Primary Care Provider] - Diet: Carb Count or DM1 Ambulatory Orders: Basic Metabolic Panel (Routine) Timeframe: 1 Day Location: Determined by Patient Ordered By: Gisela Farrell Attending Provider Instructions: Dennis Damon M.D. [facility] [address] [place] [address] Dressing Care: Leave the dressing in place for 3 days. After 3 days you may remove the dressing. If the incision is not draining, you do not have to re-cover the dressing. Desean will be removed at your postop appointment. If there is a little bit of drainage or if the wound is bothersome with your clothing, cover the incision with a dry dressing. Do not use any ointments or topical medications unless directed by your surgeon. Do not submerse the incisions in water no pools, oceans, lakes, jacuzzis, bathtubs, etc for at least 3 weeks. Showering: After 3 days you may remove the dressing and shower normally. Allow soap and water to run over the incision and pat dry. Do not scrub or soak the incision. Activity and Therapy Recommendations: - If you are not using home therapy then Outpatient Physical Therapy should start about 3-5 days from your day of surgery. Therapy will last about 8-12 weeks - Wear your sling for 3 weeks, unless otherwise instructed. You may remove your sling to shower and to dress, but otherwise, you should be in your sling at all times, including while sleeping - The shoulder replacement is very stable and you can use your hand while in the sling - You were shown a series of exercises in the hospital. Do these exercises daily including the exercises you were shown in physical therapy. - NO EXTERNAL ROTATION - do not reach out to your side. Pain Control: Use frequent ice to reduce amount of pain medications. Use for 30 minutes per hour. Do not leave in place longer than 30 minutes, especially when your block is in effect, to prevent frostbite or thermal injury. Medications: - Opioid: You will likely be sent home with a prescription for the opioid pain medication. Use as directed, as needed. - Other medications may be prescribed for specific circumstances. If you have any questions, please call the office at . - Resume previous home medications unless otherwise instructed Follow-Up: 1. Ortho Clinic with Dr. Damon: You should be seen in 10-14 days. Please call immediately to schedule if you do not have an appointment. Pending Studies at Discharge: No Stand-Alone Forms: [facility], Pain - Opioid Pain Management, Smoking Cessation Medications and DC Order Prescriptions: New ondansetron 4 mg tablet,disintegrating 4 mg PO Q6H PRN (Reason: nausea and vomiting) Qty: 10 0RF oxycodone 5 mg tablet 5 - 10 mg PO Q6H MDD 6 tablets PRN (Reason: post operative pain) Qty: 18 0RF cefadroxil 500 mg capsule 500 mg PO BID 10 Days Qty: 20 0RF Continued aspirin [Adult Aspirin Regimen] 81 mg tablet,delayed release (DR/EC) 81 mg PO QAM Trulicity 1.5 mg/0.5 mL pen injector 4.5 mg subcut WK Jardiance 10 mg tablet 12.5 mg PO QAM pantoprazole 40 mg tablet,delayed release (DR/EC) 40 mg PO PM Qty: 90 3RF rosuvastatin 10 mg tablet 10 mg PO QPM lisinopril 40 mg tablet 40 mg PO QAM diltiazem HCl 60 mg capsule,extended release 12 hr 60 mg PO QAM docusate sodium [Colace] 100 mg Capsule 200 mg PO QAM aluminum hydrox-magnesium carb 160-105 mg Tablet,Chewable 2 tab PO ACHS multivit with min-folic acid [Men's Multivitamin Gummies] 200 mcg Tablet,Chewable 2 tab PO QAM Discharge Orders: Discharge Order (Routine); Ordered 04/07/24 Ordered By: Thuy Floyd Admission Data Admit Date/Time: 04/06/24 13:59 Attending Provider: Dnenis Damon Admit Provider: Dennis Damon Primary Care Provider: Isaiah Coronel Other Interventions: Discharge Summary Assessment (RN) Last Done: 04/07/24 09:17
[2024-04-07] MEDS ORDERED: MULTIVIT WITH MIN FOLIC ACID PO SCH (09:00)
[2024-04-07] MEDS ORDERED: EMPAGLIFLOZIN 10 MG TAB PO SCH (09:00)
[2024-04-07] MEDS ORDERED: [UNRECOGNIZED DRUG - OTHER] PO SCH (09:00)
== END 2024-04-07 11:22 | disposition home or self-care (01) ==
LOC: 3E 08:41 → ASU 08:41